=== PATIENT | female | born 1970 | race Caucasian/White ===

== ENCOUNTER 2019-03-30 17:06 | Emergency (ER) | payer SELFPAY ==
[~2019-03-30] VITALS: Ht 172.7 cm; Wt 118.0 kg
[2019-03-30 17:35] LABS: HEMATOCRIT 46.6 % (37.0-47.0); HEMOGLOBIN 15.6 g/dl (12.0-16.0); IMMATURE GRANULOCYTES 0.3 % (0.0-5.0); MEAN CELL VOLUME 90.5 fL CALC (80.0-100.0); MEAN CORPUSCULAR HGB 30.3 pG CALC (26.0-32.0); MEAN CORPUSCULAR HGB CONC 33.5 g/L CALC (32.0-36.0); NEUT# 7.22 thou/uL (2.00-7.15); RED BLOOD COUNT 5.15 mill/uL (4.20-5.60); RED CELL DISTRI WIDTH 12.3 % (11.5-15.5)
[2019-03-30] MEDS ORDERED: NITROSTAT0.4 MG SL (17:53)
[2019-03-30] MEDS ORDERED: LISINOPRIL20 MG PO (17:53)
[2019-03-30] MEDS ORDERED: HYDROCHLOROT12.5 MG PO (17:54)
[2019-03-30] MEDS ORDERED: SIMVASTATIN5 MG PO (17:54)
[2019-03-30] MEDS ORDERED: METFORMIN500 MG PO (17:55)
[2019-03-30 18:03] LABS: ANION GAP 15 (6-22 (CALC)); BUN 13 mg/dL (7-17); BUN/CREATININE RATIO 16 (12-20 (CALC)); CARBON DIOXIDE 26 mmol/l (22-30); CHLORIDE 102 mmol/l (95-108); CREATININE 0.8 mg/dL (0.5-1.0); GFR > 60 ML/MIN (>=60 (CALC)); GFR FOR AFR.AMER. > 60 ML/MIN (>=60 (CALC)); SODIUM 139 mmol/l (137-146)
[2019-03-30 19:05] VITALS: BP 129/70
== END 2019-03-30 19:05 | disposition left against medical advice (07) | DRG 313 ==
LOC: ED 17:06 → EDBD 17:29 → ED 19:05
PROVIDERS: Family Medicine
DX: R07.9 Chest pain, unspecified (principal); R11.0 Nausea; E11.9 Type 2 diabetes mellitus without complications; I10 Essential (primary) hypertension; Z91.19 Patient's noncompliance with other medical treatment and regimen; Z79.84 Long term (current) use of oral hypoglycemic drugs

== ENCOUNTER 2019-05-19 | Emergency (ER) | payer SELFPAY ==
[~2019-05-19] MED LIST: HYDROCHLOROT12.5 MG PO; LISINOPRIL20 MG PO; METFORMIN500 MG PO; NITROSTAT0.4 MG SL; SIMVASTATIN5 MG PO
[2019-05-19 13:15] LABS: URINE BILIRUBIN - DIPSTICK NEGATIVE (NEGATIVE); URINE BLOOD DIPSTICK TRACE-INTACT (NEGATIVE); URINE COLOR YELLOW; URINE GLUCOSE - DIPSTICK NEGATIVE (NEGATIVE); URINE KETONE NEGATIVE (NEGATIVE); URINE LEUK ESTERASE NEGATIVE (NEGATIVE); URINE NITRITE - DIPSTICK NEGATIVE (Negative); URINE PROTEIN - DIPSTICK NEGATIVE (NEG-TRACE); URINE SPECIFIC GRAVITY >=1.030; URINE UROBILINOGEN - DIPSTICK 0.2 E.U./dL (0.2)
[2019-05-19] MEDS ORDERED: FLEXERIL PO (14:50)
[2019-05-19] MEDS ORDERED: TRAMADOL HYDROC50 M1 PO (14:50)
== END 2019-05-19 15:12 | disposition home or self-care (01) | DRG 563 ==
DX: S29.012A Strain of muscle and tendon of back wall of thorax, initial encounter (principal); M62.830 Muscle spasm of back; E11.9 Type 2 diabetes mellitus without complications; I10 Essential (primary) hypertension; F17.210 Nicotine dependence, cigarettes, uncomplicated; X50.3XXA Overexertion from repetitive movements, initial encounter; Y93.89 Activity, other specified; Y92.89 Other specified places as the place of occurrence of the external cause; Y99.0 Civilian activity done for income or pay; Z79.84 Long term (current) use of oral hypoglycemic drugs

== ENCOUNTER 2021-02-15 04:25 | Emergency (ER) | payer SELFPAY ==
[~2021-02-15] VITALS: Ht 172.7 cm; Wt 100.0 kg
[~2021-02-15 04:25] MED LIST changes: +FLEXERIL PO; +TRAMADOL HYDROC50 M1 PO
[2021-02-15 05:36] LABS: URINE BILIRUBIN - DIPSTICK NEGATIVE (NEGATIVE); URINE BLOOD DIPSTICK TRACE-INTACT (NEGATIVE); URINE COLOR YELLOW; URINE GLUCOSE - DIPSTICK >=1000 mg/dL (NEGATIVE); URINE KETONE NEGATIVE (NEGATIVE); URINE LEUK ESTERASE NEGATIVE (NEGATIVE); URINE PROTEIN - DIPSTICK NEGATIVE (NEG-TRACE); URINE SPECIFIC GRAVITY 1.025; URINE UROBILINOGEN - DIPSTICK 0.2 E.U./dL (0.2)
[2021-02-15 05:40] LABS: HEMATOCRIT 48.1 % (37.0-47.0); HEMOGLOBIN 15.9 g/dl (12.0-16.0); IMMATURE GRANULOCYTES 0.2 % (0.0-5.0); MEAN CORPUSCULAR HGB 30.8 pG CALC (26.0-32.0); MEAN CORPUSCULAR HGB CONC 33.1 g/dL CAL (32.0-36.0); NEUT# 7.57 thou/uL (2.00-7.15); RED BLOOD COUNT 5.17 mill/uL (4.20-5.60); RED CELL DISTRI WIDTH 12.5 % (11.5-15.5)
[2021-02-15 05:41] LABS: URINE NITRITE - DIPSTICK NEGATIVE (Negative)
[2021-02-15 05:51] LABS: ALBUMIN 4.3 g/dL (3.2-5.0); ALKALINE PHOSPHATASE 70 u/l (38-126); ANION GAP 11 (6-22 (CALC)); BILIRUBIN, TOTAL 0.7 mg/dL (0.0-1.4); BUN 14 mg/dL (7-17); BUN/CREATININE RATIO 20 (12-20 (CALC)); CARBON DIOXIDE 30 mmol/l (22-30); CHLORIDE 101 mmol/l (95-108); CREATININE 0.7 mg/dL (0.5-1.0); GFR > 60 ML/MIN (>=60 (CALC)); GFR FOR AFR.AMER. > 60 ML/MIN (>=60 (CALC)); POTASSIUM 4.6 mmol/l (3.5-5.1); SGOT/AST 29 u/l (14-36); SODIUM 136 mmol/l (137-146); TOTAL PROTEIN 7.6 g/dL (6.3-8.2)
[2021-02-15 06:03] LABS: MYOGLOBIN 41 ng/mL (0 - 62)
[2021-02-15 06:45] VITALS: BP 127/66
== END 2021-02-15 07:01 | disposition left against medical advice (07) | DRG 313 ==
LOC: ED 04:25 → ED-I 06:18 → ED 07:01
PROVIDERS: Emergency Medicine
DX: R07.9 Chest pain, unspecified (principal); E11.65 Type 2 diabetes mellitus with hyperglycemia; I10 Essential (primary) hypertension; F17.210 Nicotine dependence, cigarettes, uncomplicated; Z91.19 Patient's noncompliance with other medical treatment and regimen; Z79.84 Long term (current) use of oral hypoglycemic drugs; Z20.822 Contact with and (suspected) exposure to COVID-19